=== PATIENT | male | born 1990 | race Caucasian/White ===

== ENCOUNTER 2023-12-23 10:44 | Emergency (ER) | payer SELFPAY ==
[~2023-12-23] VITALS: Ht 180.3 cm; Wt 77.1 kg
[2023-12-23 10:47] VITALS: BP 141/95; PULSE 109; RESP 18; TEMP 98.3; O2SAT 99
== END 2023-12-23 11:16 ==
LOC: MED 10:44
DX: F10.129 Alcohol abuse with intoxication, unspecified (principal); Z79.899 Other long term (current) drug therapy; Y90.9 Presence of alcohol in blood, level not specified
CPT/HCPCS: 99283